=== PATIENT | male | born 1970 | race Caucasian/White ===

== ENCOUNTER 2022-05-01 18:51 | Emergency (ER) | payer SELFPAY ==
[2022-05-01 19:14] VITALS: BP 163/102; PULSE 119; RESP 21; TEMP 37.5; O2SAT 97; BMI 26.7
--- NOTE | 2022-05-01 19:40 | EXP.UTC ---
Discharge Plan Disposition Patient Disposition: Home, Self-Care Condition: Good Prescriptions Prescriptions: New amoxicillin-pot clavulanate 875-125 mg Tablet 1 tab PO Q12H 10 Days Qty: 20 0RF ibuprofen [IBU] 800 mg tablet 800 mg PO TIDP PRN (Reason: Moderate Pain) Qty: 20 0RF Referrals Follow up/Referrals: Provider,Referral, MD [Primary Care Provider] - See instructions Activity Restrictions/Add. Instructions Additional Instructions/Restrictions: Use dental balls as directed in the [facility] Follow up with Dentist as soon as possible If you need something stronger for pain see Dentist or your Family Doctor Return if needed Straight to ER if any life threatening symptoms Clinical Impressions Clinical Impression: Abscess, dental Instructions Patient Instructions: Tooth Abscess, DI for Tooth Abscess, Ibuprofen, Amoxicillin and Clavulanic Acid Discharge ED Provider: Davina Coyle [facility] [place] HPI General Stated complaint: dental pain Mode of Arrival: Ambulatory Source of Information: Patient Limitations: No Limitations Time Seen by Provider: 05/01/22 19:41 Description of Symptoms (Recalled from Triage Doc. by RN): Pt c/o swelling to rt jaw and tooth pain since this AM HEENT Symptoms (Recalled from RN notes): Yes (Swollen rt jaw and tooth pain) Resp Symptoms (Recalled from RN notes): No Skin Symptoms (Recalled from RN notes): No MS Symptoms (Recalled from RN notes): No Functional Status (Recalled from RN notes): n/a History of Present Illness Provider Complaint: Patient states he has a crown on his right lower jaw area and was eating ice earlier and felt like he had a sharp pain in that tooth and has been having pain and swelling ever since States that tonight the pain is killing him so he came in to get something for pain and antibiotics Related Data Previous Rx's Medication Instructions Recorded amoxicillin 875 mg-potassium 1 tab PO Q12H 10 days #20 tabs 05/01/22 clavulanate 125 mg tablet ibuprofen 800 mg tablet (IBU) 800 mg PO TIDP PRN Moderate Pain 05/01/22 #20 tabs Allergies Allergy/AdvReac Type Severity Reaction Status Date / Time No Known Allergies Allergy Verified 05/01/22 19:18 Worker's Comp Is this a Worker's Comp case?: No ROS Obtained: Yes All systems reviewed & no additional complaints except as documented and Yes Systems reviewed as appropriate & no additional complaints except as documented Eyes Eyes: Reports system reviewed and no additional complaints, except as documented and Reports as per HPI ENT Ears, Nose, Mouth, and Throat: Reports system reviewed and no additional complaints, except as documented, Reports as per HPI and Reports dental pain Cardiovascular Cardiovascular: Reports system reviewed and no additional complaints, except as documented and Reports as per HPI Respiratory Respiratory: Reports system reviewed and no additional complaints, except as documented and Reports as per HPI Physical Exam General General appearance: alert and in no apparent distress Expanded ENT Exam Teeth exam: Present other (pain swelling right lower jaw pain in crown on right lower gumline) Respiratory Respiratory exam: Present normal lung sounds bilaterally; Absent respiratory distress or wheezes Cardiovascular Cardiovascular exam: Present regular rate, normal rhythm and normal heart sounds Neurological Exam Neurological exam: Present alert, oriented X3 and normal gait Medical Decision Making Dominic Inquiry Pt receiving controlled substance: No Dominic was queried for this patient: No Vital Signs: 05/01/22 19:14 Temperature 99.5 F Temperature Source Oral Pulse Rate [Left Radial] 119 H Respiratory Rate 21 Blood Pressure [Left Arm] 163/102 H Blood Pressure Mean [Left Arm] 122 Blood Pressure Source [Left Arm] Automatic Cuff Blood Pressure Position [Left Arm] Sitting 02 Sat by Pulse Oximetry 97 Oxygen Delivery Method Room Air Medical Decision Narrative: Patient initially sa
[2022-05-01 20:08] VITALS: BP 163/102; PULSE 119; RESP 21; TEMP 37.5; O2SAT 97
== END 2022-05-01 20:09 | disposition home or self-care (01) ==
PROVIDERS: Emergency Provider Nurse Practitioner
DX: K04.7 Periapical abscess without sinus (principal)
CPT/HCPCS: 99212; G0463

== ENCOUNTER 2023-05-10 18:55 | Emergency (ER) | payer SELFPAY ==
[2023-05-10 19:10] VITALS: BP 160/74; PULSE 95; RESP 20; TEMP 36.9; O2SAT 98; BMI 27.3
--- NOTE | 2023-05-10 19:24 | EXP.UTC ---
Discharge Plan Disposition Patient Disposition: Home, Self-Care Condition: Good Prescriptions Prescriptions: New amoxicillin-pot clavulanate 875-125 mg Tablet 1 tab PO Q12H Qty: 20 0RF Referrals Follow up/Referrals: Provider,Referral, MD [Primary Care Provider] - See instructions Activity Restrictions/Add. Instructions Additional Instructions/Restrictions: Clean wounds 2-3 times daily with antibacterial soap and water Take oral Antibiotics as prescribed Watch areas for worsening of redness, or other signs of worsening infection including but not limited too fever, chills, streaks, swelling drainage from wounds if seen go straight to the Emergency room Return if needed Clinical Impressions Clinical Impression: Dog bite Qualifiers: Encounter type: initial encounter Qualified Code(s): W54.0XXA - Bitten by dog, initial encounter Instructions Patient Instructions: DI for Animal Bites, Amoxicillin and Clavulanic Acid, DI for Dog Bite Discharge ED Provider: Davina Coyle [facility] [place] HPI General Stated complaint: dog bite Mode of Arrival: Ambulatory Source of Information: Patient Limitations: No Limitations Time Seen by Provider: 05/10/23 19:24 Description of Symptoms (Recalled from Triage Doc. by RN): PATIENT C/O DOG BITES TO BILATERAL ARMS THAT HAPPENED YESTERDAY. HE STATES HIS DOG GOT CAUGHT IN TRACTOR STEPS AND BIT PATIENT HE WAS TRYING TO HELP HIM. HE REPORTS DOG IS UP TO DATE ON SHOTS HEENT Symptoms (Recalled from RN notes): No Resp Symptoms (Recalled from RN notes): No Skin Symptoms (Recalled from RN notes): Yes MS Symptoms (Recalled from RN notes): No Functional Status (Recalled from RN notes): WNL History of Present Illness Provider Complaint: Patient states that yesterday his dog was climbing on the tractor steps when it slipped and fell and his leg got caught in one of the steps so he ran over and scooped him up and the dog was yelping and bite him on bilateral forearms States that the dog is up to date on his shots and has never bitten anyone or anything before it was just scared and hurt States that today he noticed the bites was looking red around them and worried they may be getting infected Related Data Previous Rx's Medication Instructions Recorded amoxicillin 875 mg-potassium 1 tab PO Q12H #20 tabs 05/10/23 clavulanate 125 mg tablet Allergies Allergy/AdvReac Type Severity Reaction Status Date / Time No Known Allergies Allergy Verified 05/01/22 19:18 Worker's Comp Is this a Worker's Comp case?: No [facility] Disclaimer: The information contained in this section may have been updated after the patient was seen, as this information can be updated by other users. Medical History (Updated 05/10/23 @ 19:40 by Davina Coyle APRN) Kidney stone Social History Smoking Status: Unknown if ever smoked alcohol intake: never current occupational status: employed Travel in the last 8 weeks: None ROS Obtained: Yes All systems reviewed & no additional complaints except as documented and Yes Systems reviewed as appropriate & no additional complaints except as documented Constitutional Constitutional: Reports system reviewed and no additional complaints, except as documented and Reports as per HPI Cardiovascular Cardiovascular: Reports system reviewed and no additional complaints, except as documented and Reports as per HPI Respiratory Respiratory: Reports system reviewed and no additional complaints, except as documented and Reports as per HPI Gastrointestinal Gastrointestingal: Reports system reviewed and no additional complaints, except as documented and as per HPI Musculoskeletal Musculoskeletal: Reports system reviewed and no additional complaints, except as documented and Reports as per HPI Integumentary/Breasts Skin/Breast: Reports system reviewed and no additional complaints, except as documented and Reports as per HPI Comments: multiple puncture wounds on bilateral forearms f
[2023-05-10 19:33] VITALS: BP 160/74; PULSE 95; RESP 20; TEMP 36.9; O2SAT 98
== END 2023-05-10 19:35 | disposition home or self-care (01) ==
PROVIDERS: Emergency Provider Nurse Practitioner
DX: S51.851A Open bite of right forearm, initial encounter (principal); S51.852A Open bite of left forearm, initial encounter; W54.0XXA Bitten by dog, initial encounter
CPT/HCPCS: 99212; 99214; G0463

== ENCOUNTER 2024-12-05 11:37 | Emergency (ER) | payer SELFPAY ==
[2024-12-05] VITALS (8 sets, daily range): BP systolic 147–200; BP diastolic 92–109; PULSE 55–74; RESP 16; TEMP 36.7; O2SAT 89–97; BMI 26.6
--- NOTE | 2024-12-05 11:54 | CT_ITS ---
FINAL REPORT TECHNIQUE: Axial images through the abdomen and pelvis were performed without contrast. This study was performed with techniques to keep radiation doses as low as reasonably achievable, (ALARA). Individualized dose reduction techniques using automated exposure control or adjustment of mA and/or kV according to the patient's size were employed. CLINICAL HISTORY: R flank/RLQ pain, h/o stones COMPARISON: None FINDINGS: Abdomen: Dependent edema is noted at the lung bases. There is moderate fatty infiltration of the liver. The gallbladder is present. The spleen, pancreas, and adrenal are unremarkable. There is moderate right hydronephrosis and hydroureter. A 6 mm obstructing stone is noted in the right UVJ. There is mild perinephric stranding of the right kidney. Pelvis: The urinary bladder is incompletely distended. No bladder stone seen. The appendix is not visualized. There is no pelvic mass or inflammation. IMPRESSION: 6 mm obstructing stone right UVJ with moderate hydronephrosis and hydroureter. Reviewed, Interpreted and Dictated by Epifanio See MD Transcribed by Teodora Rodriguez Authenticated and [facility]
[2024-12-05] MEDS: MORPHINE 4MG/ML SYRINGE 4 MG IV (11:57)
[2024-12-05] MEDS: KETOROLAC 30MG/ML VIAL 15 MG IV (11:57)
[2024-12-05] MEDS: ONDANSETRON 4MG/2ML VIAL 4 MG IV (11:57)
[2024-12-05] MEDS: ACETAMINOPHEN 1,000MG/100ML VIAL 1000 MG IV (11:58)
[2024-12-05] MEDS: LACTATED RINGERS 1000ML 1,000 ML 999 ML IV ×2 (11:58→13:33)
[2024-12-05 12:00] LABS: Basophils % 0.2 % (0.1-2.0); Eosinophils % 0.2 % (0.1-12.0); Hematocrit 45.8 % (42.0-52.0); Hemoglobin 16.6 g/dL (14.1-18.0); Lymphocytes # 1.3 K/mm3 (0.7-4.5); Lymphocytes % 9.6 % (10-50); Mean Corpuscular HGB Conc 36.2 g/dL (31.8-35.4); Mean Corpuscular Hemoglobin 31.4 pg (27.0-31.2); Mean Corpuscular Volume 86.7 fl (80-94); Mean Platelet Volume 10.5 fl (7.4-10.4); Monocytes # 0.7 K/mm3 (0.1-1.0); Monocytes % 5.3 % (1.7-9.3); Neutrophils % 84.1 % (37.0-80.0); Nucleated Red Blood Cells # 0 10^3/uL; Nucleated Red Blood Cells % 0 %; Platelet Count 318 K/mm3 (142-424); Red Blood Count 5.28 M/mm3 (4.60-6.20); Red Cell Distribution Width 12.5 % (11.5-17.5); Red Cell Distribution Width-SD 39.3 fL; White Blood Count 13.1 K/mm3 (4.8-10.8)
[2024-12-05 12:11] LABS: Alanine Aminotransferase 33 U/L (12-78); Albumin Level 4.4 g/dl (3.5-5.0); Albumin/Globulin Ratio 1.3 (1.1-1.8); Alkaline Phosphatase 103 U/L (38-126); Anion Gap 9.9 mEq/L (5-15); Aspartate Amino Transferase 32 U/L (17-59); Blood Urea Nitrogen 21 mg/dl (9-20); Calcium 9.3 mg/dl (8.4-10.2); Carbon Dioxide 28 mmol/L (22.0-30.0); Chloride 106 mmol/L (98-107); Creatinine Clearance Estimated 54 mL/min (50-200); Estimated Glomerular Filt Rate 42 ml/min (>60); GFR (African American) 51 ML/MIN (>60); Globulin 3.4 g/dL (1.3-3.2); Glucose 161 mg/dl (74-100); Lipase 65 U/L (23-300); Potassium 3.9 mmoL/L (3.5-5.1); Sodium 140 mmol/L (136-145); Total Protein,Serum 7.8 g/dl (6.3-8.2)
[2024-12-05] MEDS: HYDROMORPHONE 2MG/ML SYRINGE 1 MG IV ×2 (12:33→13:29)
--- NOTE | 2024-12-05 12:38 | ED_ITS ---
Discharge Plan Disposition Patient Disposition: Home, Self-Care Condition: Good Prescriptions Prescriptions: New oxycodone 5 mg tablet 5 mg PO Q8H PRN (Reason: pain) Qty: 12 0RF ketorolac 10 mg tablet 10 mg PO Q8H PRN (Reason: pain) 3 Days Qty: 12 0RF tamsulosin [Flomax] 0.4 mg capsule 0.4 mg PO DAILY Qty: 14 0RF ondansetron 4 mg tablet,disintegrating 4 mg PO Q8H PRN (Reason: nausea and vomiting) 4 Days Qty: 12 0RF No Action amoxicillin-pot clavulanate 875-125 mg Tablet 1 tab PO Q12H Qty: 20 0RF Referrals Follow up/Referrals: Provider,Referral, MD [Primary Care Provider] - See instructions Activity Restrictions/Add. Instructions Additional Instructions/Restrictions: You were evaluated in the emergency department today. You were diagnosed with a kidney stone. Follow-up closely with urology. We do not have an interventional urologist at our healthcare facility, but one close option is Dr. Peyman Chiu in [place] ([facility] - [address], [address], [place] [address] - [phone]). I spoke with him and he advised he would be happy to see and take care of you. Please make sure you drink plenty of fluids and stay orally hydrated. Toradol is an NSAID like ibuprofen and aleve, so do not take other NSAIDs while taking this medication. Try getting by with toradol and Tylenol, but you may choose to take the narcotic pain medication provided to you in the event of severe pain not controlled by these medications. Do not drive or operate heavy machinery while taking narcotic pain medication, as it can be sedating. Narcotic pain medication can be addicting and can cause constipation. Follow-up closely with your primary care provider as well. Return to the emergency department for new or worsening symptoms such as significant worsening in pain, fever greater than 100.4 ?F, intractable nausea and vomiting. Clinical Impressions Clinical Impression: Ureterolithiasis, MAYRA (acute kidney injury) Stand Alone Forms Stand Alone Forms: Work/School Release Instructions Patient Instructions: DI for Kidney Stones, DI for Acute Kidney Injury Print Language Print Language: Hungarian Discharge ED Provider: Stephanie Rodgers General Adult HPI General Chief complaint: Back Pain/Injury Stated complaint: pain in lower rt back and side Time Seen by Provider: 12/05/24 11:39 Mode of Arrival: Ambulatory Source of Information: Patient Description of Symptoms (Recalled from ER Triage Doc. by RN): Patient presents today with right back and flank pain since last night. Patient reports pain at 10/10 and vomiting. Patient took home hydrocodone. History of Present Illness HPI narrative: This patient is a 54-year-old male with a history of prior kidney stones who does not follow regularly with a doctor presenting to the emergency department for evaluation concern for severe right flank pain radiating around to his right lower quadrant. He notes that it started last night. Pain is accompanied by nausea and vomiting. No fevers, chills, changes in bowel movements. He notes he feels like his urine output has decreased. He states that this feels similar to prior kidney stone. Nothing makes it better or worse and is currently 10 out of 10. No prior surgical history Related Data Previous Rx's ?Medication ?Instructions ?Recorded amoxicillin 875 mg-potassium 1 tab PO Q12H #20 tabs 05/10/23 clavulanate 125 mg tablet ketorolac 10 mg tablet 10 mg PO Q8H PRN pain 3 days #12 12/05/24 tabs ondansetron 4 mg disintegrating 4 mg PO Q8H PRN nausea and 12/05/24 tablet vomiting 4 days #12 tabs oxycodone 5 mg tablet 5 mg PO Q8H PRN pain #12 tabs 12/05/24 tamsulosin 0.4 mg capsule (Flomax) 0.4 mg PO DAILY #14 caps 12/05/24 Allergies Allergy/AdvReac Type Severity Reaction Status Date / Time No Known Allergies Allergy Verified 05/01/22 19:18 [facility] Disclaimer: The information contained in this section may have been updated after the patient was seen, as this information can be updated by other users. Medical History Kidney stone Social History Smoking Status: Never smoker alcohol intake: never current occupational status: employed Travel in the last 8 weeks: None Have you lived/traveled outside US in past 30 days?: No Contact w/someone who lives/traveled outside US past 30 days?: No Exposure to someone with infectious disease in past 14 days?: No Do you have a fever (greater than 100.4 F or 38 C)?: No Have you tested positive for COVID-19: No Exposed to someone with COVID-19 in past 14 days?: No Do you have a sore throat?: No Do you have a cough?: No Do you have any weakness?: No Do you have any diarrhea?: No Are you experiencing any unusual bleeding?: No Do you have any muscle aches/pain?: No Do you have any abdominal pain?: Yes Are you experiencing loss of taste or smell?: No ROS Obtained: Yes All systems reviewed & no additional complaints except as documented Physical Exam General General appearance: alert Comment: Uncomfortable appearing Head Head exam: atraumatic and normocephalic Eye Eye exam: Present normal appearance, PERRL and EOMI ENT ENT exam: Present normal exam, normal oropharynx, mucous membranes moist and normal external ear exam Neck Neck exam: Present normal inspection, full ROM and trachea midline; Absent tenderness Chest Chest inspection: Present normal inspection and symmetric chest wall rise; Absent tenderness Respiratory Respiratory exam: Present normal lung sounds bilaterally; Absent respiratory distress, wheezes, stridor or accessory muscle use Cardiovascular Cardiovascular exam: Present regular rate and normal rhythm Abdominal Exam Abdominal exam: Present soft and tenderness (Right lower quadrant); Absent distention, guarding, rebound or rigidity Extremities Exam Extremities exam: Present normal inspection, full ROM and normal capillary refill; Absent tenderness or edema Back Exam Back exam: Present CVA tenderness (R) Neurological Exam Neurological exam: Present alert, oriented X3, CN II-XII intact and normal gait; Absent motor sensory deficit Psychiatric Psychiatric exam: Present normal affect and normal mood Skin Skin exam: Present warm and dry Medical Decision Making Medical Records Medical records reviewed: Yes I reviewed the patient's medical records. Screening: Per USPSTF and CDC recommendations, given the prevalence of disease in our region, it is our hospital?s policy to screen for HIV and viral Hepatitis for all patients aged 18 and over and those with ongoing risk factors. Dominic Inquiry Pt receiving controlled substance: Yes Dominic was queried for this patient: Yes Risks and benefits of using a controlled substance: were discussed with pt by me Vital Signs: 12/05/24 11:45 12/05/24 11:45 12/05/24 12:01 Temperature 98.1 F Temperature Source Oral Pulse Rate 72 74 Pulse Rate [Right Radial] 63 Respiratory Rate 16 Blood Pressure 200/105 H 197/109 H Blood Pressure [Right Arm] 200/105 H Blood Pressure Mean 138 Blood Pressure Mean [Right Arm] 136 Blood Pressure Source [Right Arm] Automatic Cuff Blood Pressure Position [Right Arm] Sitting 02 Sat by Pulse Oximetry 97 96 96 Oxygen Delivery Method Room Air 12/05/24 12:30 12/05/24 13:00 12/05/24 13:30 Temperature Temperature Source Pulse Rate 62 58 L 68 Pulse Rate [Right Radial] Respiratory Rate Blood Pressure 184/107 H 162/97 H 163/104 H Blood Pressure [Right Arm] Blood Pressure Mean Blood Pressure Mean [Right Arm] Blood Pressure Source [Right Arm] Blood Pressure Position [Right Arm] 02 Sat by Pulse Oximetry 97 92 L 96 Oxygen Delivery Method Room Air Room Air 12/05/24 14:00 12/05/24 14:30 Temperature Temperature Source Pulse Rate 57 L 55 L Pulse Rate [Right Radial] Respiratory Rate Blood Pressure 149/92 H 147/92 H Blood Pressure [Right Arm] Blood Pressure Mean Blood Pressure Mean [Right Arm] Blood Pressure Source [Right Arm] Blood Pressure Position [Right Arm] 02 Sat by Pulse Oximetry 89 L 94 L Oxygen Delivery Method Room Air Lab Data Lab results reviewed: Yes I reviewed the patient's lab results. Lab Results 12/05/24 11:44: WBC 13.1 H, RBC 5.28, Hgb 16.6, Hct 45.8, MCV 86.7, MCH 31.4 H, MCHC 36.2 H, RDW 12.5, Plt Count 318, MPV 10.5 H, Neut % (Auto) 84.1 H, Lymph % (Auto) 9.6 L, [place] % (Auto) 5.3, Eos % (Auto) 0.2, Baso % (Auto) 0.2, Neut # (Auto) 11.0 H, Lymph # (Auto) 1.3, [place] # (Auto) 0.7, Eos # (Auto) 0.0, Baso # (Auto) 0.0, Sodium 140, Potassium 3.9, Chloride 106, Carbon Dioxide 28, Anion Gap 9.9, BUN 21 H, Creatinine 1.70 H, Estimated Creat Clear 54, Estimated GFR 42 L, Est GFR ( Amer) 51 L, Glucose 161 H, Calcium 9.3, Total Bilirubin 1.0, AST 32, ALT 33, Alkaline Phosphatase 103, Total Protein 7.8, Albumin 4.4, G lobulin 3.4 H, Albumin/Globulin Ratio 1.3, Lipase 65, HCV Ab JAMAL w/Rflx PCR Qn Negative 12/05/24 : Urine Color Yellow, Urine Appearance Clear, Urine pH 6.0, Ur Specific [place] 1.025, Urine Protein Negative, Urine Glucose (UA) Negative, Urine Ketones Trace, Urine Blood Negative, Urine Nitrate Negative, Urine Bilirubin Negative, Urine Urobilinogen 0.2, Ur Leukocyte Esterase Negative, Urine RBC None, Urine WBC Occasional, Ur Squamous Epith Cells None, Urine Bacteria None 12/05/24 11:44 12/05/24 11:44 Orders (Tests/Meds): ED MEDICATIONS Discontinued Medications Generic Name Dose Route Start Last Admin Trade Name Freq PRN Reason Stop Dose Admin Acetaminophen 1,000 mg 12/05/24 11:53 12/05/24 11:58 Acetaminophen 1,000mg/100ml Vial IV 12/05/24 11:54 1,000 mg ONCE ONE Administration Hydromorphone HCl 1 mg 12/05/24 12:30 12/05/24 12:33 Hydromorphone 2mg/Ml Syringe IV 12/05/24 12:31 1 mg ONCE ONE Administration Hydromorphone HCl 1 mg 12/05/24 13:24 12/05/24 13:29 Hydromorphone 2mg/Ml Syringe IV 12/05/24 13:25 1 mg ONCE ONE Administration Lactated Ringer's 1,000 mls @ 999 mls/hr 12/05/24 11:53 12/05/24 11:58 Lactated Ringer's 1000 Ml Bag IV 12/05/24 12:53 999 mls/hr .Q1H1M ONE Administration Lactated Ringer's 1,000 mls @ 999 mls/hr 12/05/24 13:24 12/05/24 13:33 Lactated Ringer's 1000 Ml Bag IV 12/05/24 14:24 999 mls/hr .Q1H1M ONE Administration Ketorolac Tromethamine 15 mg 12/05/24 11:53 12/05/24 11:57 Ketorolac 30mg/Ml Vial IV 12/05/24 11:54 15 mg ONCE ONE Administration Morphine Sulfate 4 mg 12/05/24 11:53 12/05/24 11:57 Morphine 4mg/Ml Syringe IV 12/05/24 11:54 4 mg ONCE ONE Administration Ondansetron HCl 4 mg 12/05/24 11:53 12/05/24 11:57 Ondansetron 4mg/2ml Vial IV 12/05/24 11:54 4 mg ONCE ONE Administration Promethazine HCl 12.5 mg 12/05/24 13:24 12/05/24 13:32 Promethazine Hcl 25mg/Ml 1ml Vial IV 12/05/24 13:25 12.5 mg ONCE ONE Administration Sodium Chloride 25 ml 12/05/24 13:24 12/05/24 13:32 Sodium Chloride 0.9% 25ml Bag IV 12/05/24 13:25 25 ml ONCE ONE Administration ORDERS Category Date Time Status CT abdomen pelvis wo con Stat Cat Scan 12/05/24 11:54 Completed Complete Blood Count Auto Diff Stat Lab 12/05/24 11:44 Completed Comprehensive Metabolic Panel Stat Lab 12/05/24 11:44 Completed HIV Combo Stat Lab 12/05/24 11:44 Received Hepatitis C Ab Qual. W/ RFX Stat Lab 12/05/24 11:44 Completed Lipase Stat Lab 12/05/24 11:44 Completed UA [Urinalysis and Microscopic] Stat Lab 12/05/24 Completed Urine Culture Stat Micro 12/05/24 Received Medical Decision Narrative: In summary, this patient is a 54-year-old man presenting to the Emergency Department for evaluation of right flank pain radiating around to his right lower abdomen as well as nausea and. Differential diagnoses considered include but are not limited to ureterolithiasis, colitis, appendicitis, cholecystitis, pyelonephritis. Ruling out the most morbid conditions drove assessment. On exam, the patient is uncomfortable appearing. He is significantly hypertensive with systolics in the 200s in the setting of severe pain. He has right lower quadrant tenderness but no rebound or guarding. He also has right CVA tenderness. Otherwise, exam is reassuring. Workup included CBC, CMP, lipase, urinalysis, urine culture, CT abdomen pelvis without IV contrast. He was given a bolus of IV fluids as well as IV morphine, Zofran, Toradol, and acetaminophen for symptomatic improvement. I independently interpreted CT scan prior to the radiologist read and noted obstructive right ureterolithiasis at the UVJ with a 6 mm stone. Please see their read for final interpretation. Labs were obtained that demonstrated mild leukocytosis, likely leukemoid reaction in the setting of vomiting as he is afebrile with reassuring vital signs. Chemistry demonstrates MAYRA with a creatinine of 1.7. I do not know his baseline, but he denied any known history of kidney dysfunction. Urinalysis is not concerning for infection with no leukocyte esterase, nitrates, or bacteria. On reassessment, patient initially had minimal improvement after administration of morphine, Toradol, acetaminophen, Zofran as above. He continued to have significant pain and nausea and vomiting, so administered 1 mg of IV Dilaudid. This works temporarily, but then the pain came back and he had vomiting again. For this, I gave IV Phenergan and Dilaudid. This significant helped his pain and on subsequent reassessment he was feeling a whole lot better. Blood pressure improved after pain control. Given the MAYRA and obstructive stone, I called and had an interactive discussion with Dr. Chiu with [place] [facility]. He advises patient is okay to make an appointment with him as an outpatient and follow-up in clinic there. Patient does prefer outpatient follow-up as opposed to being transferred for urology today. He was given instructions for hydration, supportive care, and reassured return precautions. He was given prescriptions for oxycodone, Toradol, Zofran, and Flomax. He was discharged after all questions were answered with plan for close urology follow-up Critical Care Critical Care Time Critical Care Time: Yes Attestation: On 12/05/24, the high probability of a clinically significant, sudden or life threatening deterioration of the following system(s) required my full and direct attention, intervention and personal management. The time I documented below is in addition to time spent performing reported procedures but includes the following listed in this critical care notation. Total Time Total Critical Care Time: 35
[2024-12-05 13:09] LABS: Hepatitis C Ab Qual. W/ RFX NEGATIVE (Negative)
[2024-12-05] MEDS: SODIUM CHLORIDE 0.9% 25ML BAG 25 ML IV (13:32)
[2024-12-05] MEDS: PROMETHAZINE HCL 25MG/ML 1ML VIAL 12.5 MG IV (13:32)
[2024-12-05 14:52] LABS: Microscopic, Urine URINE MICROSCOPIC (MICROSCOPIC)
[2024-12-05 14:55] LABS: Appearance,Urine CLEAR (Clear); Bilirubin,Urine Negative (Negative); Blood, Urine Negative (Negative); Color,Urine YELLOW (Yellow); Glucose,Urine (UA) Negative (Negative); Ketones,Urine TRACE (Negative); Leukocyte Esterase,Urine Negative (Negative); Nitrate,Urine Negative (Negative); Protein,Urine Negative (Negative); Specific Gravity, Urine 1.025 (1.005-1.030); Urobilinogen,Urine 0.2 EU/dl (0.2)
--- NOTE | 2024-12-05 14:59 | PC.NURSE ---
CALLING [facility] FOR CONSULT FOR AT [facility] FOR UROLOGY CONSULT FOR 6MM RIGHT KIDNEY STONE AT [facility] AND MAYRA PER
[2024-12-05 15:07] LABS: WBC,Urine Occasional #/hpf (0-3)
--- NOTE | 2024-12-05 15:42 | PC.NURSE ---
Pt left bottle of hydrocodone/acetamenphen on counter in room upon discharge. CAlled patient and they stated to discard. notifed other staff and put medication in pharmacy bin per Jacinto. Note By Luis Judd
[2024-12-07 10:59] LABS: HIV Combo NEGATIVE (Negative)
== END 2024-12-05 15:30 | disposition home or self-care (01) ==
PROVIDERS: Emergency Provider Emergency Medicine
DX: N13.0 Hydronephrosis with ureteropelvic junction obstruction (principal); N13.4 Hydroureter; R10.31 Right lower quadrant pain; R11.2 Nausea with vomiting, unspecified; I10 Essential (primary) hypertension; N17.8 Other acute kidney failure; Z11.59 Encounter for screening for other viral diseases; Z11.4 Encounter for screening for human immunodeficiency virus [HIV]
CPT/HCPCS: 74176; 80053; 81001; 83690; 85025; 86803; 87086; 87389; 96361; 96374; 96375; 96376; 99291; J0131; J1171; J1885; J2270; J2405; J2550; J7120